=== PATIENT | female | born 1980 | race Two or more races ===

== ENCOUNTER 2019-10-17 19:26 | Emergency (ER) | payer SELFPAY ==
[~2019-10-17] VITALS: Ht 165.1 cm; Wt 85.2 kg
[2019-10-17] MEDS ORDERED: DEXAMETHASONE SOD PHOS 20 MG/5 ML VIAL. PO ONE (20:45)
[2019-10-17] MEDS ORDERED: ORPHENADRINE CITRATE 60 MG/2 ML VIAL. IM ONE (20:45)
--- NOTE | 2019-10-17 20:50 | PHYS DOC ---
Past Medical History Past Medical History: No Pertinent History Past Surgical History: , Tubal ligation Smoking Status: Never Smoker Alcohol Use: None General Adult EDM: Chief Complaint: HEADACHE HPI: HPI: Patient is a 39 year old female who presents to the emergency department with complaints of a headache in her right occipital area that radiates down the right side of her neck to her shoulder for the last 4 days. Patient denies any injury, numbness, tingling, weakness, vision changes, nausea, vomiting, abdominal pain, fever, or ear pain. She states that the pain sometimes radiates to her jaw. She currently rates her pain a 10 out of 10 on pain scale, she denies any alleviating factors. Patient states she has tried taking Tylenol and ibuprofen at home with no relief of her headache. She denies any history of migraines or any known medical history. She denies any recent head injury. Patient is [place]-speaking only therefore the [employer] interpreter line was used to discuss with the patient Review of Systems: Review of Systems: Constitutional: Denies fever or chills. [] Eyes: Denies change in visual acuity. [] HENT: Denies nasal congestion or sore throat. [] Respiratory: Denies cough or shortness of breath. [] Cardiovascular: Denies chest pain or edema. [] GI: Denies abdominal pain, nausea, vomiting Musculoskeletal: Denies back pain or joint pain. [] Integument: Denies rash. [] Neurologic: see HPI Psychiatric: Denies depression or anxiety. [] Heart Score: Risk Factors: Risk Factors: DM, Current or recent (<one month) smoker, HTN, HLP, family history of CAD, obesity. Risk Scores: Score 0 - 3: 2.5% MACE over next 6 weeks - Discharge Home Score 4 - 6: 20.3% MACE over next 6 weeks - Admit for Clinical Observation Score 7 - 10: 72.7% MACE over next 6 weeks - Early Invasive Strategies Current Medications: Current Medications Medications (Trade) Dose Ordered Sig/Jerry Start Time Stop Time Status Last Admin Dose Admin Dexamethasone Sodium Phosphate (Decadron) 10 mg 1X ONCE 10/17/19 20:45 10/17/19 20:46 DC 10/17/19 20:45 10 MG Orphenadrine Citrate (Norflex) 60 mg 1X ONCE 10/17/19 20:45 10/17/19 20:46 DC 10/17/19 20:45 60 MG Allergies: Allergies: Allergies Coded Allergies Type Severity Reaction Last Updated Verified No Known Drug Allergies 10/17/19 No Physical Exam: PE: Constitutional: Well developed, well nourished, no acute distress, non-toxic appearance. [] HENT: Normocephalic, atraumatic, bilateral external ears normal, nose normal. [] Eyes: PERRLA, EOMI, conjunctiva normal, no discharge. [] Neck: Normal range of motion, no stridor. [] Cardiovascular:Heart rate regular rhythm Lungs & Thorax: Respirations even and unlabored, no retractions, no respiratory distress Skin: Warm, dry, no erythema, no rash. [] Back: Tenderness to palpation of the right trapezius area, no bony tenderness Extremities: No cyanosis, ROM intact Neurologic: Alert and oriented X 3, no focal deficits noted. [] Psychologic: Affect normal, judgement normal, mood normal. [] Current Patient Data: Vital Signs: Vital Signs Date Time Temp Pulse Resp B/P (MAP) Pulse Ox O2 Delivery O2 Flow Rate FiO2 10/17/19 20:11 98.3 68 16 142/100 (114) 98 Room Air 98.3 EKG: EKG: [] Radiology/Procedures: Radiology/Procedures: [] Course & Med Decision Making: Course & Med Decision Making Pertinent Labs and Imaging studies reviewed. (See chart for details) [] Dragon Disclaimer: Dragon Disclaimer: This electronic medical record was generated, in whole or in part, using a voice recognition dictation system. Departure Departure Impression: Primary Impression: Tension type headache, unspecified Additional Impression: High blood pressure Qualified Codes: I10 - Essential (primary) hypertension Disposition: HOME, SELF-CARE Condition: STABLE Referrals: NO PCP (PCP) Patient Instructions: Hypertension, [id number], Tension Headache, [id number] Additional Instructions: Fill the prescription and take as directed for headache. Follow up with your primary care doctor this week for further evaluation and treatment of your headaches and high blood pressure. REturn to the ER if your symptoms worsen. Scripts Butalb/Acetaminophen/Caffeine ([id number] [id number]) 1 Each Tablet 1-2 EACH PO Q4HRS PRN for PAIN MDD 6 tabs for 3 Days, #18 TAB 0 Refills Prov: JESU FLORES [employer] 10/17/19 JESU FLORES [employer] Oct 17, 2019 20:50
[2019-10-17] MEDS ORDERED: BUTA1TAB23 PO (20:56)
[2019-10-17 21:30] VITALS: BP 135/88
== END 2019-10-17 21:32 | disposition home or self-care (01) ==
LOC: ER 19:26
DX: G44.209 Tension-type headache, unspecified, not intractable (principal); I10 Essential (primary) hypertension; Z98.51 Tubal ligation status; Z98.890 Other specified postprocedural states
CPT/HCPCS: 96372; 99283; J1100; J2360